=== PATIENT | male | born 1970 | race Hispanic/Latino ===

== ENCOUNTER → 2019-05-28 | Outpatient (CLI) | payer BC, SELFPAY ==
[2019-05-28 12:45] LABS: Absolute Lymphocyte Count 1.79 X10^3/uL (0.83-4.51); Absolute Neutrophil Count 2.1 X10^3/uL (2.0-7.7); Basophil# 0.03 X10^3/uL; Basophil% 0.6 % (0-1); Eosinophil# 0.46 X10^3/uL; Eosinophils% 9.5 % (0-5); Hematocrit 46.7 % (40-54); Hemoglobin 15.3 g/dL (13.0-16.5); Lymphocyte # 1.79 X10^3/ul (4.0); Mean Corp Hgb Conc 32.8 g/dL (32-36); Mean Corpuscular Hgb 27.4 pg (27.0-32.0); Mean Corpuscular Volume 83.7 fL (80-94); Mean Platelet Vol. 10.3 fl (6.2-12.0); Monocyte# 0.47 X10^3/uL; Monocyte% 9.7 % (0-10); NRBC Flagged by Analyzer 0 % (0-5); Neutrophil # 2.07 X10^3/uL (2.7-7.7); Neutrophil % 42.8 % (47-70); Platelet Count 213 K/mm3 (150-450); RBC Distribution Width CV 12.1 % (11.6-14.6); RBC Distribution Width SD 36.7 fl (35.1-43.9); Red Blood Count 5.58 M/mm3 (4.6-6.2); White Blood Count 4.8 K/mm3 (4.4-11.0)
[2019-05-28 12:58] LABS: ALB/GLOB Ratio 1.1 RATIO (0.9-2.4); AST(SGOT) 18 U/L (15-37); Alanine Aminotransfer ALT/SGPT 40 U/L (16-61); Alkaline Phosphatase 65 U/L (45-117); Anion Gap 6 (5-15); BUN 20 mg/dL (7-18); BUN/Creat Ratio 22.6 RATIO (10-20); Calcium,Total 8.7 mg/dL (8.5-10.1); Chloride 104 mmol/L (98-107); Cholesterol 220 mg/dL (200); Creatinine, Serum 0.88 mg/dL (0.70-1.30); EST Glomerular Filtration Rate 97 mL/min (>60); Est Glom Filt Rate - Afr Amer 117 mL/min (>60); Globulin 3.6 g/dL (2.2-4.2); Glucose 98 mg/dL (74-106); High Density Lipoprotein 45 mg/dL; PSA,Total - Annual Screen 0.82 ng/mL (0.00-4.00); Potassium 3.7 mmol/L (3.5-5.1); Protein, Total 7.6 g/dL (6.4-8.2); Sodium Level 140 mmol/L (136-145); Triglycerides 290 mg/dL; Very Low Density Lipoprotein 58 mg/dL (5-40)
== END | disposition home or self-care (01) ==
LOC: BFHLAB 09:05
PROVIDERS: Family Provider Family Medicine; PCP Family Medicine; Visit Provider Family Medicine
DX: Z00.00 Encounter for general adult medical examination without abnormal findings (principal); Z12.5 Encounter for screening for malignant neoplasm of prostate
CPT/HCPCS: 36415; 80053; 80061; 84153; 85025; G0103

== ENCOUNTER 2019-06-11 06:13 | Day surgery (SDC) | payer BC, SELFPAY ==
[2019-06-11 06:48] VITALS: BP 127/79; PULSE 53; RESP 18; TEMP 36.2; O2SAT 100; BMI 25.2
[2019-06-11] MEDS: Lactated Ringers 1,000 ML 100 ML IV (07:02)
--- NOTE | 2019-06-11 07:22 | HP.PCM_ITS ---
History of Present Illness Date of Admission: 06/11/19 The patient is a 49 year old M presents for screening colonoscopy. The patient has never had a colonoscopy in the past. He has no abdominal pain or blood in his stool. He has no family history of colon cancer. He is not on any blood thinners. Past Medical/Surgical History - Planned Operation Planned Operative Procedure/s: cscope open access Date of Operative Procedure: 06/11/19 Permit Signed: No S.O.S: No Is This Patient Having a Total Joint: No - Previous Hospitalizations/Surgeries HX Hospitalizations: No HX of Surgeries: APPENDECTOMY AGE 16. skin lesions removed 15 Any Problems With Anesthesia: No You/Your Family Experience Fever (Hyperthermia) With Anes: No Cholinesterase deficiency: No - Cardiovascular Hx Chest Pain within Last 2 months: No Hx of Irregular Heartbeat and/or Afib: No Hx Heart Attack: No Hx Congestive Heart Failure: No Hx Rheumatic Fever: No Hx Hypertension: No Hx Internal Defibrillator: No Hx Pacemaker: No Hx Cardiac Catheterization: No Hx Cardiac Surgery/Stents/Etc.: No Hx Stress Test: No HX Edema: No Hx Pain in Legs when Walking/Leg Cramps: No - Respiratory Chronic Cough: No HX of Shortness of Breath: Yes - DX TB 2008, HAS SCARRED LUNGS. ONLY SOB WITH BAD COLDS Hoarseness: No Hx Chronic Obstructive Pulmonary Disease (COPD): No Hx Asthma: No Hx Emphysema: No Hx Sleep Apnea: No CPAP: No BIPAP: No Hx Oxygen Use at Home: No Hx Respiratory Tract Infection/Cold (presently): No Do You Snore Loudly (louder than talking or can be heard): Yes Do You Often Feel Tired/ Fatigued/ Sleepy Dring Daytime?: No Has Anyone Observed You Stop Breathing During Sleep?: No Result (for STOP score): Negative Hx Smoking: Yes - QUIT AGE 25 Smoking Status: Former smoker - Gastrointestinal Hx Gastroesophageal Reflux: No Hx Gastrointestinal Disorders: No Hx Gastrointestinal Bleed: No Hx Ulcer: No Hx Hiatal Hernia: No Difficulty Chewing/Swallowing: No Recent Onset of Swallowing Problems: No Special diet followed at home: No Hx Unplanned Weight Loss of 20#: No HX Unplanned Weight Gain of 20#: No - Neurological Hx Seizures: No HX Syncope/Blackout Spells/Unconsciousness: No Hx CVA/Stroke: No Hx Transient Ischemic Attacks (TIA): No Hx Multiple Sclerosis: No Hx Parkinson's Disease: No Hx Head/Neck Injury: No Hx Headaches: No Hx Back Injury/Pain: No Recent Onset of Speech Difficulty: No Restless Legs: No Does patient have nerve stimulator: No Patient instructed to have device shut off: No Rep notified?: No - Blood Disorder Hx Leukemia: No Bleeding Tendencies: No Hx Deep Vein Thrombosis: No Hx High Cholesterol: No Blood Transmitted Disease: No Hx Hepatitis: No Hx Cirrhosis: No Hx Anemia: No Hx Blood Disorders: No - Genitourinary Hx Renal Disease: No - Musculoskeletal Hx Arthritis: No Hx Rheumatoid Arthritis: No Hx Gout: No Recent Onset of an Orthopedic Problem: No - Endocrine Hx Diabetes: No Thyroid Disease: No Hx Steroid Therapy: No - Psycho/Social Hx Substance Use: No Hx Alcohol Use: No Hx Anxiety: No Hx Depression: No Mental Illness: No Hx Dementia: No - Miscellaneous Hx Cancer: No Recent Exposure to Contagious Disease: No Active MRSA: No Hx of C-Diff: No Any Loose Teeth: No - upper partial Allergies No Known Allergies Allergy (Verified 06/11/19 06:46) - Discharge Is Pt Admitted From a Residential, or a [facility]ci: No Who Could Help: family After D/C, Where Do you Plan to Go: Return Home - Physical Exam Vitals/I&O's: Vital Signs Temp Pulse Resp BP Pulse Ox 97.1 F L 53 L 18 127/79 H 100 06/11/19 06:48 06/11/19 06:48 06/11/19 06:48 06/11/19 06:48 06/11/19 06:48 Oxygen Delivery Method Room Air Weight: 156 lb 1.396 oz Body Mass Index (BMI) 25.2 General: Alert, Oriented x3 Lungs: Normal air movement Cardiovascular: Regular rate, Regular Rhythm Abdomen: Soft, Non Tender, Non-Distended Current Medications Lactated Ringer's () 1,000 mls @ 100 mls/hr IV .Q10H RUBI Last Admin: 06/11/19 07:02 Dose: 100 mls/hr Documented by: Assessment/Plan 49-year-old male for screening colonoscopy I explained endoscopy in detail to the patient. I explained the risks including but not limited to stroke or heart attack with anesthesia, perforation of the GI tract, bleeding, infection. I explained that any of these could necessitate further emergency surgery. The patient understands and all questions were answered sufficiently. The patient wishes to proceed with procedure. Lauri Petersen MD Pager: [facility] [address] [place] [address] [address] [place] [address] Office: Surgery Risks - Colonoscopy Risks Include but are not Limited To: Risks include but are not limited to: Bleeding, perforation requiring further surgery, inability to complete colonoscopy requiring barium enema.
--- NOTE | 2019-06-11 07:30 | COLBX_PTH ---
PATIENT: GRECIA CALDERON LOC: EN U#:[id number] AGE/SX: 49/M ROOM: RE06/11/[address]: Dr. Grecia Petersen MD : 1970 BED: DIS: 06/11/2019 SPEC #: [id number] RECD: 06/11/19 09:03 STATUS: EDUARDO KAMARA #: [id number] MIGUELANGEL: 06/11/19 07:[address]: Grecia Petersen DEPT: SURGICAL PATHOLOGY RECD BY: Syed Garcia ENTERED: 06/11/19 09:49 SP TYPE: COLON BX OTHR DR: Dr. Jacob Hansen DO Tissues: Descending colon Procedures: Surgery Specimen Level IV HEADER OPERATION: Colonoscopy - open access (MAC) PRE-OP DIAGNOSIS: Screening TISSUE SUBMITTED: Descending colon polyp MICROSCOPIC DIAGNOSIS Descending colon polyp, biopsy: Tubular adenoma. SJ:vanessa 06/12/19 MICROSCOPIC DESCRIPTION Slides are reviewed. GROSS DESCRIPTION Received in fixative is one container labeled with the patient's name and designated descending colon polyp. The specimen consists of one irregular fragment of light calvo soft tissue that measures 0.3 x 0.2 x 0.1 cm. The specimen is totally submitted in one cassette. / SJ:rg 06/11/19 TC:1 CPT: 92825
[2019-06-11 07:44] VITALS: BP 114/75; BP 127/79; PULSE 55; RESP 14; TEMP 36.4; O2SAT 99
--- NOTE | 2019-06-11 07:47 | OP.ENDO_ITS ---
06/11/2019 Jacob Hansen [address] [place] [address] Re : Colonoscopy procedure for Lauri Dunlap Dear Dr. Hansen This procedure was performed on Tuesday, June 11, 2019. My impressions and recommendations are as follows: Impressions : - One polyp in the descending colon, removed with a hot snare. Resected and retrieved. - The examination was otherwise normal on direct and retroflexion views. Recommendations : - Discharge patient to home. - Resume previous diet. - Continue present medications. - Repeat colonoscopy date to be determined after pending pathology results are reviewed for surveillance based on pathology results. - Physician's office will call you with pathology results and recommendations for when to repeat colonoscopy. My findings are described in the full procedure note, which is enclosed. If I can be of further assistance, please feel free to contact me at Doctor phone number(s): , Work: . Sincerely, Lauri Petersen MD 06/11/2019 7:46:43 AM This report has been signed electronically.
[2019-06-11 07:50] VITALS: BP 127/79; BP 93/64; PULSE 61; RESP 16; O2SAT 98
[2019-06-11 07:55] VITALS: BP 118/72; BP 127/79; PULSE 59; RESP 16; O2SAT 100
[2019-06-11 08:00] VITALS: BP 107/81; BP 127/79; PULSE 50; RESP 14; TEMP 36.4; O2SAT 100
[2019-06-11 08:20] VITALS: BP 127/79
== END 2019-06-11 08:23 | disposition home or self-care (01) ==
LOC: EN 06:14 → AC 06:16
PROVIDERS: Family Provider Family Medicine; PCP Family Medicine; Referring Provider Family Medicine; Visit Provider Surgery
PROC: 0DJD8ZZ Inspection of Lower Intestinal Tract, Via Natural or Artificial Opening Endoscopic (ICD-10-PCS; CPT 45378; principal; 2019-06-11 07:25)
DX: Z12.11 Encounter for screening for malignant neoplasm of colon (principal); D12.4 Benign neoplasm of descending colon; Z87.891 Personal history of nicotine dependence
CPT/HCPCS: 45380; 88305; J7120

== ENCOUNTER 2020-12-16 09:25 | Outpatient (RCR) | payer BC, SELFPAY | END 2021-01-20 23:59 | LOC: IMMUN 09:25 | PROVIDERS: PCP Family Medicine; Visit Provider Family Medicine | DX: Z23 Encounter for immunization (principal) | CPT/HCPCS: 0001A; 0002A; 91300 ==

== ENCOUNTER → 2022-05-13 | Outpatient (CLI) | payer BC, SELFPAY ==
[2022-05-13 13:05] LABS: HIV - WCH Non-Reactive (Nonreactive); Syphilis Antibodies Non-reactive
[2022-05-13 16:43] LABS: Chlamydia Trachomatis by PCR Negative (Negative); Neisserai gonorrhoeae by PCR Negative (Negative); Probe Check PASS; Sample Adequacy Control PASS; Specimen Processing Control PASS
== END | disposition home or self-care (01) ==
LOC: BFHLAB 08:01
PROVIDERS: PCP Family Medicine; Visit Provider Family Medicine
DX: Z20.9 Contact with and (suspected) exposure to unspecified communicable disease (principal)
CPT/HCPCS: 86703; 86780; 87491; 87591

== ENCOUNTER 2023-01-01 23:21 | Emergency (ER) | payer BC, SELFPAY ==
[2023-01-01 23:22] VITALS: BP 95/72; PULSE 116; RESP 24; TEMP 36.6; O2SAT 98; BMI 26.2
[2023-01-01] MEDS: predniSONE 20 MG Tablet 60 MG PO (23:44)
[2023-01-01 23:45] VITALS: PULSE 116; RESP 20
[2023-01-01] MEDS: Ipratropium/Albuterol Sulfate 3 ML AMPUL.NEB INHALATION (23:45)
[2023-01-01] MEDS: Albuterol 2.5 MG/3 ML VIAL.NEB. INHALATION (23:45)
--- NOTE | 2023-01-01 23:55 | RAD_ITS ---
INDICATION: Cough. EXAMINATION/TECHNIQUE: X-RAY - XR Chest 1 View COMPARISON: April 22, 2015 chest x-ray. FINDINGS: LINES/DEVICES: None. LUNGS: Left greater than right interstitial scarring and apical pleural thickening, stable appearance. No pneumothorax. MEDIASTINUM AND CARDIOVASCULAR STRUCTURES: Cardiac silhouette not enlarged. Aortic arch calcification. Pulmonary vascularity is normal in appearance. BONES AND SOFT TISSUES: Stable degenerative changes. RAD/Chest 1 View (Portable) IMPRESSION: No acute cardiopulmonary disease. Stable chest. Electronically Signed: Bird Harden MD at 0:19 EDT ,
--- NOTE | 2023-01-02 00:07 | ED.VIS.DYS ---
HPI History of Present Illness Chief Complaint: Shortness of Breath Narrative Narrative: 52-year-old male presenting with cough and congestion for about 3 weeks. No fevers or chills. No body aches. Patient states this happens to him just about every year. He states it usually resolves on its own. He does not know if he has a history of seasonal allergies but he is having rhinorrhea and congestion as as well as cough. Patient is eating and drinking normal. He is making normal urine and stool. He denies chest pain. He does state he has a history of TB that was treated. PFSH PFS Home Medications prednisone 50 mg tablet 50 mg PO DAILY #5 tabs 01/02/23 [Rx Last Taken Unknown] Allergy/AdvReac Type Severity Reaction Status Date / Time No Known Allergies Allergy Verified 01/01/23 23:24 Social History Smoking Status: Former smoker ROS ROS ED Constitutional Constitutional ED: Denies chills, fever(s) or sweats Eyes Eyes: Denies blurry vision or change in vision ENT ENT ED: Reports rhinorrhea; Denies ear pain Cardiovascular Cardiovascular: Denies chest pain, palpitations or racing heartbeat Respiratory/Chest Respiratory/Chest: Reports cough and dyspnea; Denies sputum Gastrointestinal Gastrointestinal: Denies abdominal pain, constipation, diarrhea, nausea or vomiting Genitourinary Genitourinary ED: Denies dysuria, hematuria or urinary frequency Musculoskeletal Musculoskeletal: Denies arthralgias, myalgias or neck pain Integumentary Denies abscess, Abrasions or rash Neurologic Neurologic: Denies headache(s), paresthesias or weakness Psychiatric Psychiatric: Denies anxiety, depression, suicidal ideation or suicidal thoughts Endocrine Endocrinology: Denies polydipsia or polyuria EXAM Physical Exam Const Vital Signs: 01/01/23 23:22 01/01/23 23:45 Temperature 98 F Temperature Source Temporal Pulse Rate 116 H 116 H Respiratory Rate 24 H 20 H Blood Pressure 95/72 Blood Pressure Mean 79 Pulse Ox 98 Oxygen Delivery Method Room Air Positive well nourished HEENT Reports moist mucous membranes atraumatic Eyes PERRL and EOMs intact bilaterally Neck no lymphadenopathy and supple Resp Resp Narrative: Tachypneic Auscultation: wheezes expiratory wheezes and throughout Cardio regular rate and regular rhythm Neuro oriented x3 and CN's II-XII intact bilaterally Sensorium / Orientation: alert Motor Exam: strength 5/5 throughout Psych mental status grossly normal Skin no wounds and skin turgor normal MDM MDM MDM Narrative Medical decision making narrative: Patient wheezing on examination. I suspect he has seasonal allergies. He is given 60 mg of prednisone as well as breathing treatments. I will obtain a chest x-ray. I do not believe he needs blood work. Chest x-ray on my interpretation does not show any acute cardiopulmonary process. The radiologist interprets this and agrees. On reevaluation at 1245 the patient states he feels much better. His breathing is improved. I will give him a prescription for prednisone burst and an albuterol inhaler. I recommend he follow-up with his PCP. I also did recommend he start either Zyrtec or Claritin as well. Patient nausea to standing. Impression: 1. Acute bronchitis with wheezing 2. Allergic rhinitis Radiography Diagnostic Testing: Clinical Impression(s) from Imaging Studies Chest X-Ray 01/01/23 23:55 IMPRESSION: No acute cardiopulmonary disease. Stable chest. Electronically Signed: Bird Harden MD at 0:19 EDT , Discharge Plan Triage Chief Complaint: Shortness of Breath ED Provider: Mitchel Chairez Dx/Rx/DC Orders Instructions: ED Bronchitis with Wheezing (Adult) Prescriptions: New prednisone 50 mg tablet 50 mg PO DAILY Qty: 5 0RF Primary Care Provider: Jacob Hansen Referrals: Jacob Hansen DO [Primary Care Provider] - Disposition Disposition: Home, Self Care
[2023-01-02] MEDS: Albuterol Sulfate 8 gm Inhaler (60 puffs) 2 PUFF INHALATION (00:59)
[2023-01-02 01:00] VITALS: PULSE 84; RESP 15; O2SAT 96
[2023-01-02 01:03] VITALS: PULSE 86; RESP 15; O2SAT 96
== END 2023-01-02 01:00 | disposition home or self-care (01) ==
PROVIDERS: Emergency Provider Student in an Organized Health Care Education/Training Program; PCP Family Medicine; Visit Provider Student in an Organized Health Care Education/Training Program
DX: J20.9 Acute bronchitis, unspecified (principal); R11.0 Nausea; J30.9 Allergic rhinitis, unspecified; Z87.891 Personal history of nicotine dependence
CPT/HCPCS: 71045; 94640; 99282

== ENCOUNTER → 2023-03-15 | Outpatient (CLI) | payer BC, SELFPAY ==
[2023-03-15 12:48] LABS: Absolute Lymphocyte Count 1.78 X10^3/uL (0.83-4.51); Absolute Neutrophil Count 2.5 X10^3/uL (2.0-7.7); Basophil# 0.02 X10^3/uL; Basophil% 0.4 % (0-1); Eosinophil# 0.44 X10^3/uL; Eosinophils% 8.6 % (0-5); Hematocrit 44.3 % (40-54); Hemoglobin 15.2 g/dL (13.0-16.5); Lymphocyte # 1.78 X10^3/ul (0.83-4.51); Lymphocyte % 34.8 % (19-41); Mean Corp Hgb Conc 34.3 g/dL (32-36); Mean Corpuscular Hgb 28.1 pg (27.0-32.0); Mean Platelet Vol. 10.1 fl (6.2-12.0); Monocyte# 0.37 X10^3/uL; Monocyte% 7.2 % (0-10); NRBC Flagged by Analyzer 0 % (0-5); Neutrophil # 2.49 X10^3/uL (2.7-7.7); Neutrophil % 48.8 % (47-70); Platelet Count 208 K/mm3 (150-450); RBC Distribution Width CV 12.5 % (11.6-14.6); RBC Distribution Width SD 37.4 fl (35.1-43.9); White Blood Count 5.1 K/mm3 (4.4-11.0)
[2023-03-15 13:18] LABS: Vitamin B12 398 pg/mL (211-911); Vitamin D,25 Hydroxy 27.3 ng/mL
[2023-03-15 13:25] LABS: ALB/GLOB Ratio 1.1 RATIO (0.9-2.4); AST(SGOT) 25 U/L (15-37); Alanine Aminotransfer ALT/SGPT 43 U/L (16-61); Albumin, Serum 3.9 g/dL (3.2-5.0); Alkaline Phosphatase 66 U/L (45-117); Anion Gap 4 (5-15); BUN 16 mg/dL (7-18); BUN/Creat Ratio 19.6 RATIO (10-20); Calcium,Total 8.5 mg/dL (8.5-10.1); Chloride 107 mmol/L (98-107); Cholesterol 202 mg/dL (200); Creatinine, Serum 0.82 mg/dL (0.70-1.30); EST Glomerular Filtration Rate 105 mL/min (>60); Est Glom Filt Rate - Afr Amer 126 mL/min (>60); Globulin 3.4 g/dL (2.2-4.2); Glucose 95 mg/dL (74-106); High Density Lipoprotein 47 mg/dL; PSA,Total - Annual Screen 1.09 ng/mL (0.00-4.00); Potassium 3.5 mmol/L (3.5-5.1); Protein, Total 7.3 g/dL (6.4-8.2); Sodium Level 140 mmol/L (136-145); Thyroid Stim Hormone (TSH) 0.96 uIU/mL (0.358-3.74); Triglycerides 193 mg/dL; Very Low Density Lipoprotein 39 mg/dL (5-40)
== END | disposition home or self-care (01) ==
LOC: BFHLAB 10:23
PROVIDERS: PCP Family Medicine; Referring Provider Family Medicine; Visit Provider Family Medicine
DX: Z00.00 Encounter for general adult medical examination without abnormal findings (principal); Z12.5 Encounter for screening for malignant neoplasm of prostate; R53.83 Other fatigue; N52.9 Male erectile dysfunction, unspecified
CPT/HCPCS: 36415; 80053; 80061; 82306; 82607; 84153; 84403; 84443; 85025; G0103

== ENCOUNTER → 2024-03-20 | Outpatient (CLI) | payer BC, SELFPAY ==
[2024-03-20 12:10] LABS: Absolute Lymphocyte Count 1.75 X10^3/uL (0.83-4.51); Absolute Neutrophil Count 2.7 X10^3/uL (2.0-7.7); Basophil# 0.04 X10^3/uL; Basophil% 0.7 % (0-1); Eosinophil# 0.45 X10^3/uL; Eosinophils% 8.2 % (0-5); Hematocrit 47.4 % (40-54); Hemoglobin 15.4 g/dL (13.0-16.5); Lymphocyte # 1.75 X10^3/ul (0.83-4.51); Lymphocyte % 32.1 % (19-41); Mean Corp Hgb Conc 32.5 g/dL (32-36); Mean Corpuscular Volume 83.2 fL (80-94); Mean Platelet Vol. 9.9 fl (6.2-12.0); Monocyte% 9.2 % (0-10); NRBC Flagged by Analyzer 0 % (0-5); Neutrophil # 2.71 X10^3/uL (2.7-7.7); Neutrophil % 49.6 % (47-70); Platelet Count 220 K/mm3 (150-450); RBC Distribution Width CV 12.3 % (11.6-14.6); RBC Distribution Width SD 37.2 fl (35.1-43.9); White Blood Count 5.5 K/mm3 (4.4-11.0)
[2024-03-20 12:56] LABS: ALB/GLOB Ratio 1.1 RATIO (0.9-2.4); AST(SGOT) 32 U/L (15-37); Alanine Aminotransfer ALT/SGPT 54 U/L (16-61); Albumin, Serum 3.8 g/dL (3.2-5.0); Alkaline Phosphatase 81 U/L (45-117); Anion Gap 7 (5-15); BUN 21 mg/dL (7-18); BUN/Creat Ratio 23.9 RATIO (10-20); Calcium,Total 8.8 mg/dL (8.5-10.1); Chloride 105 mmol/L (98-107); Cholesterol 204 mg/dL (200); Creatinine, Serum 0.88 mg/dL (0.70-1.30); EST Glomerular Filtration Rate 96 mL/min (>60); Est Glom Filt Rate - Afr Amer 116 mL/min (>60); Globulin 3.5 g/dL (2.2-4.2); Glucose 90 mg/dL (74-106); High Density Lipoprotein 46 mg/dL; PSA,Total - Annual Screen 0.89 ng/mL (0.00-4.00); Potassium 3.4 mmol/L (3.5-5.1); Protein, Total 7.3 g/dL (6.4-8.2); Sodium Level 139 mmol/L (136-145); Triglycerides 279 mg/dL; Very Low Density Lipoprotein 56 mg/dL (5-40)
== END | disposition home or self-care (01) ==
LOC: MTLAB 09:03
PROVIDERS: PCP Family Medicine; Referring Provider Family Medicine; Visit Provider Family Medicine
DX: Z00.00 Encounter for general adult medical examination without abnormal findings (principal); Z12.5 Encounter for screening for malignant neoplasm of prostate
CPT/HCPCS: 36415; 80053; 80061; 84153; 85025; G0103

== ENCOUNTER 2024-06-01 08:45 | Day surgery (SDC) | payer BC, SELFPAY ==
[2024-06-01] VITALS (10 sets, daily range): BP systolic 91–122; BP diastolic 58–81; PULSE 57–71; RESP 12–16; TEMP 35.9–36.1; O2SAT 96–100; BMI 25.7
--- NOTE | 2024-06-01 09:52 | PCM.PRE.AN2 ---
ASA Classification* ASA Classification ASA Classification: 1 Assessment & Plan Anesthesia* Anesthesia Assessment Anesthesia Assessment: Discussed sedation and/or anesthesia options, risks, benefits, and alternatives with patient/parents/legal guardian/POA. Questions invited. The patient/parents/legal guardian/POA seems to understand and agrees to proceed with anesthesia plan. Reviewed the physical assessment, medical history, allergy history and patient home medications list prior to surgery/procedure/anesthetic and documented any changes. Performed airway and anesthesia risk assessments. Anesthesia Type Anesthesia Type: MAC History Source History Obtained from:: Patient and Chart Anesthesia Focused Assessment* Temperature: 97.0 F Pulse Rate: 57 Blood Pressure: 122/81 Respiratory Rate: 12 Pulse Ox: 100 Oxygen Delivery Method: Room Air Airway Assessment Mouth opens: >3 cm Mallampati Score: IV Teeth Condition: Partial (Upper partial is out. Rest are tight.) Neck Range of motion (ROM): Full ROM Focused Labs Anesthesia Preop lab: CBC WBC 5.5 K/mm3 (4.4-11.0) 03/20/24 09:05 RBC 5.70 M/mm3 (4.6-6.2) 03/20/24 09:05 Hgb 15.4 g/dL (13.0-16.5) 03/20/24 09:05 Hct 47.4 % (40-54) 03/20/24 09:05 Plt Count 220 K/mm3 (150-450) 03/20/24 09:05 CHEMISTRY Potassium 3.4 mmol/L (3.5-5.1) L 03/20/24 09:05 Sodium 139 mmol/L (136-145) 03/20/24 09:05 BUN 21 mg/dL (7-18) H 03/20/24 09:05 Creatinine 0.88 mg/dL (0.70-1.30) 03/20/24 09:05 Glucose 90 mg/dL (74-106) 03/20/24 09:05 TSH 0.96 uIU/mL (0.358-3.74) 03/15/23 10:25 COAG Pre-Assessment Diagnosis/Proposed Procedure Planned Operative Procedure(s): COLONOSCOPY Anesthesia History Anesthesia History - boiling off winder: Anesthesia History - boiling off winder Hx Hospitalization No 05/30/24 12:54 Any Problems With Anesthesia No 05/30/24 12:54 Cholinesterase deficiency No 05/30/24 12:54 You/Your Family Experience No 05/30/24 12:54 fever (hyperthermia) with Relationship Recent Exposure to Contagious No 06/01/24 09:16 Disease Does patient have nerve No 05/30/24 12:54 stimulator Patient instructed to have device shut off --Does patient have Pacemaker No 06/01/24 09:16 or ICD? When Was Last Pacemaker Check QUESTION #4 FULL TEXT: You/Your Family Experience fever (hyperthermia) with Anesthesia Last Oral Intake Last Oral intake: Last Oral Intake NPO since 06:30 06/01/24 09:16 Meds taken in AM with sips of No 06/01/24 09:16 water? Meds patient instructed to take am of surgery Any additional information?: Yes NPO since: 06:30 (Patient finished prep at 6:30 AM.) PONV PONV - boiling off winder: PONV - boiling off winder Female No 05/30/24 12:54 HX of Motion Sickness No 05/30/24 12:54 HX of N/V After Surgery No 05/30/24 12:54 Non-Smoker Yes 05/30/24 12:54 Duration of Surgery greater No 05/30/24 12:54 than 60 minutes Number of Risk Factors 1 05/30/24 12:54 PONV Score Low Risk 05/30/24 12:54 Height & Weight Height & Weight: Anesthesia: Height & Weight Height 5 ft 6 in 06/01/24 09:16 Weight: 72.3 kg 06/01/24 09:16 Body Mass Index (BMI) 25.7 06/01/24 09:16 Respiratory Assessment Respiratory Assessment - boiling off winder: Respiratory Tract Infection Hx - boiling off winder Hx Respiratory Tract Infection No 05/30/24 12:54 STOP Sleep Apnea STOP Sleep Apnea - boiling off winder: STOP Sleep Apnea - boiling off winder Hx Hypertension No 05/30/24 12:54 Hx Sleep Apnea No 05/30/24 12:54 CPAP No 06/11/19 07:44 BIPAP No 06/07/19 14:10 Do you snore loudly (louder No 05/30/24 12:54 than talking or can be heard Do you often feel tired/ No 05/30/24 12:54 fatigued/ sleepy during daytime? Has anyone observed you stop No 05/30/24 12:54 breathing during sleep? STOP Results Negative 05/30/24 12:54 QUESTION #5 FULL TEXT : Do you snore loudly (louder than talking or can be heard through closed doors)? 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 Specify any problems Hx of Preganancy in last 3 N/A 05/30/24 12:54 Months Nurse Filling Out Transfusion [facility] 05/30/24 12:54 & Questions: Date: 05/30/24 05/30/24 12:54 Time: 13:00 05/30/24 12:54 Patient unable to answer at this time (ie. confused, unrespo /Reproduction History /Reproductive History - boiling off winder: /Reproductive Hx- boiling off winder Hx Now Gestational Age (in weeks): EDC: Hx Hx Para Hx Section SAB PFSH Medical History Wears partial dentures Wears glasses Former smoker Asthma Personal history of colonic polyps Home Medications ?Medication ?Instructions ?Recorded ?Last Taken ?Type NK 05/30/24 Unknown History Allergy/AdvReac Type Severity Reaction Status Date / Time No Known Allergies Allergy Verified 06/01/24 09:16 Surgical History Hx of colonoscopy History of appendectomy Social History (Updated 03/27/24 @ 09:40 by Lisa Diggs) household members: spouse housing: house current occupational status: employed current occupation: [employer] Smoking Status: Former smoker substance use type: does not use Review of Systems (Anesthesia) ROS Narrative System reviewed and no additional complaints, except as documented.
--- NOTE | 2024-06-01 10:01 | HP.PCM_ITS ---
HPI - General HPI Narrative GRECIA CALDERON, is a 54 M who presents for surveillance colonoscopy. His last colonoscopy was 5 years ago and a polyp was removed. He denies abdominal pain or blood in the stool. He denies family history of colon cancer. [facility] Medical History Wears partial dentures Wears glasses Former smoker Asthma Personal history of colonic polyps Home Medications ?Medication ?Instructions ?Recorded ?Last Taken ?Type NK 05/30/24 Unknown History Allergy/AdvReac Type Severity Reaction Status Date / Time No Known Allergies Allergy Verified 06/01/24 09:16 Surgical History Hx of colonoscopy History of appendectomy Social History (Updated 03/27/24 @ 09:40 by Lisa Diggs) household members: spouse housing: house current occupational status: employed current occupation: [employer] Smoking Status: Former smoker substance use type: does not use Past Medical/Surgical History Planned Operation Planned Operative Procedure(s): COLONOSCOPY S.O.S: No Previous Hospitalizations/Surgeries HX Hospitalizations: No HX of Surgeries: APPENDECTOMY AGE 16 skin lesions removed 16 Any Problems With Anesthesia: No You/Your Family Experience Fever (Hyperthermia) With Anes: No Cholinesterase deficiency: No Cardiovascular Hx Chest Pain within Last 2 months: No Hx of Irregular Heartbeat and/or Afib: No Hx Heart Attack: No Hx Congestive Heart Failure: No Hx Rheumatic Fever: No Hx Hypertension: No Hx Internal Defibrillator: No Hx Pacemaker: No Hx Cardiac Catheterization: No Hx Cardiac Surgery/Stents/Etc.: No Hx Stress Test: No Hx Pain in Legs when Walking/Leg Cramps: No Respiratory Chronic Cough: No HX of Shortness of Breath: Yes (DX TB 2008, HAS SCARRED LUNGS. ONLY SOB WITH BAD COLDS) Hoarseness: No Hx Chronic Obstructive Pulmonary Disease (COPD): No Hx Asthma: No Hx Emphysema: No Hx Sleep Apnea: No CPAP: No BIPAP: No Hx Respiratory Tract Infection/Cold (presently): No Do You Snore Loudly (louder than talking or can be heard): No Do You Often Feel Tired/ Fatigued/ Sleepy Dring Daytime?: No Has Anyone Observed You Stop Breathing During Sleep?: No Result (for STOP score): Negative Hx Smoking: Yes (QUIT AGE 25) Smoking Status: Former smoker Gastrointestinal Hx Gastrointestinal Disorders: No Hx Gastrointestinal Bleed: No Hx Ulcer: No Hx Hiatal Hernia: No Difficulty Chewing/Swallowing: No Special diet followed at home: No Hx Unplanned Weight Loss of 20#: No HX Unplanned Weight Gain of 20#: No Neurological Hx Seizures: No HX Syncope/Blackout Spells/Unconsciousness: No Hx Transient Ischemic Attacks (TIA): No Hx Multiple Sclerosis: No Hx Parkinson's Disease: No Hx Head/Neck Injury: No Hx Headaches: No Hx Back Injury/Pain: No Recent Onset of Speech Difficulty: No Restless Legs: No Does patient have nerve stimulator: No Blood Disorder Hx Leukemia: No Bleeding Tendencies: No Hx Deep Vein Thrombosis: No Hx High Cholesterol: No Blood Transmitted Disease: No Hx Hepatitis: No Hx Cirrhosis: No Hx Anemia: No Hx Blood Disorders: No Genitourinary Hx Renal Disease: No Musculoskeletal Hx Arthritis: No Hx Rheumatoid Arthritis: No Hx Gout: No Recent Onset of an Orthopedic Problem: No Endocrine Hx Diabetes: No Thyroid Disease: No Hx Steroid Therapy: No Psycho/Social Hx Substance Use: No Hx Alcohol Use: No Hx Anxiety: No Hx Depression: No Mental Illness: No Hx Dementia: No Miscellaneous Hx Cancer: No Recent Exposure to Contagious Disease: No Hx of C-Diff: No Any Loose Teeth: No (upper partial) Allergies No Known Allergies Allergy (Verified 06/01/24 09:16) Discharge Is Pt Admitted From a Fdc, or a Half-Way: No Who Could Help: After D/C, Where Do you Plan to Go: Return Home Vital Signs Vital Signs Vital Signs: 06/01/24 09:16 06/01/24 09:16 06/01/24 09:58 Temperature 97.0 F L 97.0 F L Temperature Source Temporal Pulse Rate 57 L 57 L Respiratory Rate 12 12 Respiratory Pattern Normal Blood Pressure 122/81 H 122/81 H Blood Pressure Mean 94 Blood Pressure Source Monitor Blood Pressure Position Semi-Fowlers Blood Pressure Location Left Arm Pulse Ox 100 100 Oxygen Delivery Method Room Air Room Air Weight Weight: 159 lb 6.307 oz Body Mass Index (BMI) 25.7 Physical Exam Const alert and oriented x3 HEENT normocephalic Eyes PERRL Resp normal respiratory effort and normal air movement Cardio regular rate and regular rhythm GI soft to palpation, non-tender and non-distended Extremity normal to inspection Assessment & Plan Assessment/Plan (1) Encounter for screening for malignant neoplasm of colon: PLAN: Patient is here for surveillance for history of colon polyp. I explained endoscopy in detail to the patient. I explained the risks including but not limited to stroke or heart attack with anesthesia, perforation of the GI tract, bleeding, infection. I explained that any of these could necessitate further emergency surgery. The patient understands and all questions were answered sufficiently. The patient wishes to proceed with procedure. Grecia Petersen MD Pager: [facility] [address] [place] [address] [address] [place] [address] Office: Surgery Risks - Colonoscopy Risks Include but are not Limited To: Risks include but are not limited to: Bleeding, perforation requiring further surgery, inability to complete colonoscopy requiring barium enema.
--- NOTE | 2024-06-01 10:25 | OP.COLON_ITS ---
Patient Name: Lauri Dunlap Procedure Date: 06/01/2024 10:06 AM Date of : 1970 Age: 54 Procedure: Colonoscopy Indications: High risk colon cancer surveillance: Personal history of colonic polyps Providers: Lauri Petersen MD Medicines: Propofol per Anesthesia Patient Profile: This is a 54 year old male. Refer to note in patient chart for documentation of history and physical. Last Colonoscopy: 5 years ago. Complications: No immediate complications. Procedure: Pre-Anesthesia Assessment: - Prior to the procedure, a History and Physical was performed, and patient medications and allergies were reviewed. The patient's tolerance of previous anesthesia was also reviewed. The risks and benefits of the procedure and the sedation options and risks were discussed with the patient. All questions were answered, and informed consent was obtained. Prior Anticoagulants: The patient has taken no anticoagulant or antiplatelet agents. After reviewing the risks and benefits, the patient was deemed in satisfactory condition to undergo the procedure. After I obtained informed consent, the scope was passed under direct vision. Throughout the procedure, the patient's blood pressure, pulse, and oxygen saturations were monitored continuously. The adult colonoscope was introduced through the anus and advanced to the cecum, identified by appendiceal orifice and ileocecal valve. The colonoscopy was performed without difficulty. The patient tolerated the procedure well. The quality of the bowel preparation was good. The ileocecal valve, appendiceal orifice, and rectum were photographed. Scope In: 10:14:17 AM Scope Withdrawal Time 0 hours 5 minutes 21 seconds Scope Out: 10:23:08 AM Total Procedure Duration Time 0 hours 8 minutes 51 seconds Findings: The entire examined colon appeared normal on direct and retroflexion views. Impression: - The entire examined colon is normal on direct and retroflexion views. - No specimens collected. Recommendation: - Discharge patient to home. - Resume previous diet. - Continue present medications. - Repeat colonoscopy in 10 years for screening purposes. Procedure Code(s): --- Professional --- 19726, Colonoscopy, flexible; diagnostic, including collection of specimen(s) by brushing or washing, when performed (separate procedure) Diagnosis Code(s): --- Professional --- Z86.010, Personal history of colonic polyps CPT copyright 2021 [employer]. All rights reserved. The codes documented in this report are preliminary and upon braille coder review may be revised to meet current compliance requirements. Lauri Petersen MD 06/01/2024 10:24:44 AM This report has been signed electronically. Number of Addenda: 0 Note Initiated On: 06/01/2024 10:06 AM
--- NOTE | 2024-06-01 10:25 | OP.CCLET_ITS ---
06/01/2024 Jacob Hansen [address] [place] [address] Re : Colonoscopy procedure for Lauri Dunlap Dear Dr. Hansen This procedure was performed on Saturday, June 01, 2024. My impressions and recommendations are as follows: Impressions : - The entire examined colon is normal on direct and retroflexion views. - No specimens collected. Recommendations : - Discharge patient to home. - Resume previous diet. - Continue present medications. - Repeat colonoscopy in 10 years for screening purposes. My findings are described in the full procedure note, which is enclosed. If I can be of further assistance, please feel free to contact me at Doctor phone number(s): , Work: . Sincerely, Lauri Petersen MD 06/01/2024 10:24:44 AM This report has been signed electronically.
--- NOTE | 2024-06-01 10:32 | PCM.POST.ANE ---
Anesthesia: Postop Eval I Current Vital Signs Temperature: 97 F Pulse Rate: 70 Blood Pressure: 95/63 Respiratory Rate: 16 Pulse Ox: 98 Oxygen Delivery Method: Room Air Assessment Airway patent: Yes Spontaneous unlabored respirations: Yes Mental status: Asleep nausea: No Vomiting: No Anesthesia Complication: No Fluid Hydration Crystalloid volume administer (ml): 40 Total IV fluid infused: 40 Progress Note Anesthesia document: Postop Eval 1 completed: Yes
--- NOTE | 2024-06-01 15:45 | PCM.POSTANE2 ---
Anesthesia Postop Eval I Sum Postop Eval Completion status Anesthesia document: Postop Eval 1 completed: Yes Anesthesia Postop Eval I Summary Anesthesia Postop Eval I Summary: Anesthesia Postop Eval I: Assessment Summary Airway patent Yes 06/01/24 10:33 [email or web address] Spontaneous unlabored Yes 06/01/24 10:33 [email or web address] respirations Mental status Asleep 06/01/24 10:33 [email or web address] nausea No 06/01/24 10:33 [email or web address] Vomiting No 06/01/24 10:33 [email or web address] Anesthesia Postop Eval I: Fluid Summary Crystalloid volume administer 40 06/01/24 10:33 [email or web address] (ml) Colloids volume administered ( ml) Blood Product volume administered (ml) Total IV fluid infused 40 06/01/24 10:33 [email or web address] Anesthesia Postop Eval I: Summary Notes Anesthesia Complication No 06/01/24 10:33 [email or web address] Anesthesia Complication Comment: Post-operative progress note Anesthesia: Postop Eval II Evaluation Mental status: Awake and Calm Pain Level: 0 nausea: No Vomiting: No Complications Anesthesia Complication: No
== END 2024-06-01 11:13 | disposition home or self-care (01) ==
LOC: EN 08:45 → AC 08:47
PROVIDERS: PCP Family Medicine; Referring Provider Family Medicine; Visit Provider Surgery
PROC: 0DJD8ZZ Inspection of Lower Intestinal Tract, Via Natural or Artificial Opening Endoscopic (ICD-10-PCS; CPT 45378; principal; 2024-06-01 09:55)
DX: Z12.11 Encounter for screening for malignant neoplasm of colon (principal); Z86.0100 Personal history of colon polyps, unspecified; Z90.49 Acquired absence of other specified parts of digestive tract; Z87.891 Personal history of nicotine dependence
CPT/HCPCS: 45378; A4216; J2405

== ENCOUNTER → 2025-01-07 | Outpatient (CLI) | payer BC, SELFPAY ==
--- NOTE | 2025-01-07 11:33 | RAD_ITS ---
PROCEDURE: KNEE 4 OR MORE VIEWS 01/07/2025 REASON FOR EXAM: LEFT KNEE PAIN, TIBIAL TUBERCLE ENLARGED TECHNIQUE: Four views of the left knee COMPARISON: None RAD/Knee 4 or More Views IMPRESSION: No acute fracture or dislocation. Minimal degenerative changes. Minimal joint effusion. No acute soft tissue abnormalities. Reading Location: [id number]
--- NOTE | 2025-01-07 11:33 | RAD_ITS ---
PROCEDURE: ANKLE MIN 3 VIEWS 01/07/2025 REASON FOR EXAM: LEFT LATERAL ANKLE PAIN AND SWELLING WITH WALKING, HX INJURY TECHNIQUE: 3 views of the left ankle COMPARISON: None FINDINGS: No fracture or malalignment. Talar dome is intact. Ankle mortise is symmetric. Bone mineral density is subjectively normal. Soft tissues are unremarkable. Tiny Achilles heel spur with subtle calcification of the distal Achilles tendon. RAD/Ankle min 3 Views IMPRESSION: No fracture. Mild Achilles enthesopathy. Reading Location: [facility]
== END | disposition home or self-care (01) ==
LOC: MTRAD 11:32
PROVIDERS: PCP Family Medicine; Referring Provider Family Medicine; Visit Provider Family Medicine
DX: M25.562 Pain in left knee (principal); M25.572 Pain in left ankle and joints of left foot
CPT/HCPCS: 73564; 73610

== ENCOUNTER → 2025-07-26 | Outpatient (CLI) | payer BC, SELFPAY ==
--- NOTE | 2025-07-26 13:13 | RAD_ITS ---
PROCEDURE: SHOULDER MIN 2 VIEWS 07/26/2025 REASON FOR EXAM: PAIN IN SHOULDER TECHNIQUE: Procedure Code: RADSH Modality: DX Procedure: SHOULDER MIN 2 VIEWS Laterality: Left COMPARISON: None FINDINGS: Bones: No acute fracture. Joints: Normal alignment of the acromioclavicular and glenohumeral joints. Soft tissues: Soft tissues are unremarkable. RAD/Shoulder min 2 Views IMPRESSION: No acute fracture or dislocation is noted in the left shoulder. Reading Location: [facility]
== END | disposition home or self-care (01) ==
LOC: MTRAD 13:10
PROVIDERS: PCP Family Medicine; Referring Provider Nurse Practitioner Family; Visit Provider Nurse Practitioner Family
DX: M25.512 Pain in left shoulder (principal)
CPT/HCPCS: 73030